=== PATIENT | male | born 1990 | race Caucasian/White ===

== ENCOUNTER 2017-05-17 09:34 | Inpatient (IN) | payer OTHER ==
[~2017-05-17] VITALS: Ht 180.3 cm; Wt 59.0 kg
[2017-05-17] MEDS ORDERED: NICOTINE POLACRILEX 4 MG GUM-PK OF TEN BC PRN (16:30)
[2017-05-17] MEDS ORDERED: LORAZEPAM 2 MG/1 ML VIAL IM PRN (16:30)
[2017-05-17] MEDS ORDERED: ONDANSETRON 4 MG/2 ML VIAL IM PRN (16:30)
[2017-05-17] MEDS ORDERED: DICYCLOMINE HCL 20 MG TABLET PO PRN (16:30)
[2017-05-17] MEDS ORDERED: ACETAMINOPHEN 325 MG TABLET PO PRN (16:30)
[2017-05-17] MEDS ORDERED: THIAMINE HCL 200 MG/2 ML VIAL IM ONE (16:30)
[2017-05-17] MEDS ORDERED: DIAZEPAM 5 MG TABLET PO PRN (16:30)
[2017-05-17] MEDS ORDERED: NICOTINE 14 MG/24HR PATCH TD PRN (16:30)
[2017-05-17] MEDS ORDERED: MAG HYDROX/AL HYDROX/SIMETH 30 ML LIQUID UDC PO PRN (16:30)
[2017-05-17] MEDS ORDERED: ONDANSETRON ODT 4 MG TAB.RAPDIS SL PRN (16:30)
[2017-05-17] MEDS ORDERED: DIAZEPAM 10 MG TABLET PO PRN ×2 (16:30)
[2017-05-17] MEDS ORDERED: MIRALAX 17 GM POWD.PACK PO PRN (16:30)
[2017-05-17] MEDS ORDERED: LOPERAMIDE HCL 2 MG CAPSULE PO PRN ×2 (16:30)
[2017-05-17] MEDS ORDERED: MAGNESIUM HYDROXIDE 30 ML LIQUID UDC PO PRN (16:30)
[2017-05-17] MEDS ORDERED: CLONIDINE HCL 0.1 MG TABLET PO PRN (16:30)
[2017-05-17] MEDS ORDERED: IBUPROFEN 600 MG TABLET PO PRN (16:30)
--- NOTE | 2017-05-17 16:30 | NUR ---
PRE-ASSESSMENT: Pre-Assessment done at intake office, client is A/O x4, he presents with flat affect, anxious mood, client appears undernourished. Client avoids eye contact, soft speech, he has difficulty staying still, he continuously talks with his hands, he slouches while sitting. T 98.4 , RR 18, BP 124/73 HR 74, spO2 @ 95% on RA, Pain on R knee /10. He is fully ambulatory. He denies any allergies; he reports hx withdrawal-induced seizure. PMH: Depression, anxiety, pancreatitis. Past surgical hx: Colonoscopy (Mar 2017) Client denies taking home medication. Substance history First time used at 15y/o, but started consuming more 7 years ago, Alcohol (beer) 6 cans (12oz) budweiser, last dose 3 Rum and Coke drinks before admission. Alprazolam 8-10mg PO daily for the past 11 months, last used 05/16/17 @ 1800, last dose 3mg. Hydrocodone 40-60mg PO three to four times a week. Last dose 20mg on 05/13/17. Cocaine 1gm snorted, for the past 11 months, last used 05/17/17, "a few lines" Marijuana "a few joints" smoked, last time used 05/13/17, a couple of puffs. Protocol regarding vitals Q4H, UDS, blood work, and controlled substances discuss with client, he verbalized understanding. PCP (adjunct art history instructor) Tricia Ramey
--- NOTE | 2017-05-17 16:35 | NUR ---
Admissions Note 27 year old male admitted to [facility] for withdrawal from multiple substances. Client is oriented to unit, educated about protocols and how to work TV and call light in his room. Weight: 144 pounds. Height: 5'11" CIWA: 4 Client appears anxious, clammy skin, superficial abrasion to R knee and lower back, d/t a fall 4 days ago while under the influence of alcohol. Bilateral lung clear on auscultation, abdomen soft, non-tender, no edema noted. Clients voice is soft, he avoids eye contact. Client has NKA. Regular diet ordered. Full code status ordered. Client reports history of withdrawal-induced seizure and delirium. LBM was 05/15/07, medium/with dark blood/soft x 1. He gives verbal consent for FLU/ PNA vaccine. He gives verbal consent for HIV. Client states that he lives with his girlfriend. He reports 3 prior treatments, last been in an outpatient treatment on Apr 2016 at [facility]. His longest period of sobriety is for the last eight months and ended on May 2016. Dr. Crawley assessed client. Urine collected. All safety measures instituted. Univeral precaution. Call light within reach. Will continue to monitor.
[2017-05-17 16:45] LABS: BASOPHILS # (AUTO) 0.1 K/uL (0.0-8.0); BASOPHILS % (AUTO) 0.9 % (0.0-2.0); EOSINOPHILS # (AUTO) 0.2 K/uL (0.0-0.7); HEMATOCRIT 43.7 % (36.7-47.1); HEMOGLOBIN 14.9 g/dL (12.5-16.3); LYMPHOCYTES # (AUTO) 1.6 K/uL (20.0-40.0); LYMPHOCYTES % (AUTO) 24.9 % (20.5-51.5); MEAN CORPUSCULAR HEMOGLOBIN 29.5 uug (23.8-33.4); MEAN CORPUSCULAR HGB CONC 34 g/dL (32.5-36.3); MEAN CORPUSCULAR VOLUME 86.4 fL (73.0-96.2); MONOCYTES # (AUTO) 0.5 K/uL (2.0-10.0); MONOCYTES % (AUTO) 7.5 % (0.0-11.0); NEUTROPHILS # (AUTO) 4.1 K/uL (1.8-8.9); NEUTROPHILS % (AUTO) 63.7 % (38.5-71.5); PLATELET COUNT (AUTO) 329 K/uL (152-348); RED BLOOD CELL COUNT(AUTO) 5.06 MIL/uL (4.06-5.63); WHITE BLOOD COUNT (AUTO) 6.5 K/uL (3.6-10.2)
[2017-05-17 16:56] LABS: BILIRUBIN,TOTAL 0.6 mg/dL (0.2-1.0); CREATININE 1.2 mg/dL (0.6-1.3); POTASSIUM 3.3 mmol/L (3.5-5.1); TOTAL PROTEIN, SERUM 7.2 g/dL (6.4-8.2)
[2017-05-17 17:11] LABS: *AMPHETAMINE, URINE NEGATIVE (NEGATIVE); *BARBITURATE, URINE NEGATIVE (NEGATIVE); *CANNABINOID, URINE POSITIVE (NEGATIVE); *COCCAINE, URINE POSITIVE (NEGATIVE); *OPIATE, URINE NEGATIVE (NEGATIVE); *PHENCYCLIDINE SCREEN,URINE NEGATIVE (NEGATIVE)
[2017-05-17] MEDS ORDERED: POTASSIUM CHLORIDE 10 MEQ TAB.PRT.SR PO ONE (17:15)
--- NOTE | 2017-05-17 19:36 | NUR ---
START OF SHIFT NOTE: Patient is a 27 year old male admitted for ETOH/Beer withdrawal. Patient reports NKA, is on Full code, is on Fall and Seizures Precautions. Patient reports Hx of withdrawal-induced seizures. Patient is alert and oriented x4, resting on the bed. Patient is unshaven, irritable, with avoidant eye contact. Last CIWA =4 @1600 per outgoing day shift nurse report: Patient presented anxious, agitated, with tremors, restlessness, nervousness, sweats, c/o abdominal pain, nasal congestion, and fatigue. No PRN Medications given throughout the day per day shift nurse report. Patient encouraged to express his feelings. Encouraged to fluids intake as tolerated. All needs met. Safety measures in place: Call light within reach, bed is locked and in lowest position, padded bed rails up bilaterally. Patient endorsed by outgoing day shift nurse. Report received. Will continue to monitor closely.
--- NOTE | 2017-05-17 19:36 | NUR ---
END OF SHIFT Endorsed client to incoming nurse, client is a/o x 4, he remains in his room, prefers dim light, he presents with anxious mood, flat affect. Adequate PO fluid intake 100mL, void x 1. Last CIWA 4 @ 1600. Call light within reach.
[2017-05-17 20:00] VITALS: BP 107/74
[2017-05-17] MEDS ORDERED: PHENOBARBITAL 60 MG TABLET PO SCH (21:00)
[2017-05-18] VITALS: BP 96/60
[2017-05-18 04:00] VITALS: BP 95/57
--- NOTE | 2017-05-18 06:52 | NUR ---
END OF SHIFT NOTE: Patient is a 27 year old male admitted for ETOH/Beer withdrawal, continues Phenobarbital Taper, which tolerated well, and remains compliant with treatment, medications, and diet regime Patient reports Hx of withdrawal-induced seizures and History of Falls "when was drank". Fall and Seizures Precautions. Patient is alert and oriented x4, is unshaven, irritable, with avoidant eye contact. CIWA =10 @2000, CIWA=9 @0000. Last CIWA=9 @0400. Patient presented with anxiety, agitation, nervousness, tremors, restlessness, sweating, abdominal pain, body aches, nasal congestion, and fatigue. No PRN Medications given throughout the night. Patient encouraged to express his feelings. Encouraged to fluids intake as tolerated. All needs met. Safety measures in place: Call light within reach, bed is locked and in lowest position, padded bed rails up bilaterally. Patient endorsed to day shift nurse.
--- NOTE | 2017-05-18 07:45 | NUR ---
START OF SHIFT Endorse rcvd from ongoing nurse, client is lying in bed, he is a/o X 3, client presents with irritable mood, flat affect, skin moist, fine tremors, moist skin, restless legs, moist skin, difficulty concentrating, jumpy and answers with loud voice . Client request to dim the light in room since it bothers him, he reports difficulty sleeping, pins and needle sensation on legs, fatigue, nausea, generalized body aches, and sweats. Encourage client to increase PO fluid to facilitate detox. Encourage client to participate in ADL and to attend group therapy for skills to maintain sober. Client is on second of 5 day Phenobarbital taper, tolerating well. Last CIWA 9 @ 0400. Client slept 8 hrs. Seizure precautions rendered. Call light within reach.
[2017-05-18] MEDS: THIAMINE HCL 100 MG TABLET PO SCH (08:18)
[2017-05-18] MEDS: PHENOBARBITAL 60 MG TABLET PO SCH ×4 (08:18→20:58)
[2017-05-18] MEDS: MULTIVITAMINS,THERAPEUTIC TABLET PO SCH (08:19)
[2017-05-18] MEDS: FOLIC ACID 1 MG TABLET PO SCH (08:19)
[2017-05-18 08:25] VITALS: BP 111/70
--- NOTE | 2017-05-18 08:38 | NUR ---
PRN Tylenol 650mg PO for L side of neck 09/02. Call light within reach.
--- NOTE | 2017-05-18 08:39 | NUR ---
PPD Test administered to L forearm, client tolerated well.
[2017-05-18] MEDS ORDERED: TUBERCULIN,PURIF.PROT.DERIV. 5 TU/0.1 ML TEST ID ONE (09:00)
[2017-05-18] MEDS ORDERED: GABAPENTIN 300 MG CAPSULE PO SCH (09:00)
--- NOTE | 2017-05-18 09:38 | NUR ---
Reassess PRN Tylenol 650mg, client reporst relief from L side of neck 2/10, but tolerable. Will continue to monitor.
--- NOTE | 2017-05-18 10:52 | NUR ---
Client refused PNA/FLU vaccine, stating, "I change my mind, I' don't want to get the vaccines. Risk and benefits of vaccines discuss with client, but he still refused.
[2017-05-18] MEDS ORDERED: METHOCARBAMOL 750 MG TABLET PO PRN (11:00)
[2017-05-18] MEDS: LIDOCAINE 5% PATCH TD SCH ×2 (12:04→22:56)
--- NOTE | 2017-05-18 12:04 | NUR ---
PRN Robaxin 750mg PO for muscle spasms on L side of neck. Call light within reach.
[2017-05-18 12:21] VITALS: BP 136/78
--- NOTE | 2017-05-18 13:02 | NUR ---
Reassess PRN Robaxin 750mg, client reports relief from muscle spasms on L side of neck.
[2017-05-18] MEDS: GABAPENTIN 300 MG CAPSULE PO SCH ×2 (14:15→20:57)
[2017-05-18 16:54] VITALS: BP 120/74
--- NOTE | 2017-05-18 17:09 | NUR ---
Therapist prompted client to attend daily group session. Client responded by stating that he would attend if she was feeling well enough to go.
--- NOTE | 2017-05-18 19:04 | NUR ---
START OF SHIFT NOTE: Patient is a 27 year old male admitted for ETOH/Beer withdrawal, continues Phenobarbital taper, which tolerated well. Patient is alert and oriented x4, noted anxious, agitated, irritable, sad, with avoidant eye contact. Last CIWA =14 @1633 per day shift nurse report. Patient presented anxious, agitated, nervousness,with tremors, restlessness, sweats, body aches, myalgia, stomach pain, nasal congestion, and fatigue. PRN Tylenol 650 mg PO administrated for left side neck pain @0838, PRN Robaxin 750 mg 1 tablet PO given for myalgia @1204 were effective, per day shift nurse report. Patient encouraged to express his feelings. Encouraged to fluids intake as tolerated. Encouraged to attend group activities. All needs met. Safety measures in place: Call light within reach, bed is locked and in lowest position, padded bed rails up bilaterally. Patient endorsed by outgoing day shift nurse. Report received. Will continue to monitor closely.
--- NOTE | 2017-05-18 19:04 | NUR ---
END OF SHIFT Endorsed client to incoming nurse, client is a/o x 4, she needs encouragement to attend group therapy, client remains isolated in his room due to withdrawal symptoms, he continues to present with anxious mood, flat affect, restless legs, fine tremors, and nausea. He consumed ~ 50% of meals. PRN Tylenol 650mg PO for L side of neck 09/02, Robaxin 750mg for muscle spasms on L side of neck, noted effective. Adequate PO fluid intake 3058mL, void x 2. Last CIWA 14 @ 1600. Call light within reach.
[2017-05-18 20:00] VITALS: BP 110/72
[2017-05-18] MEDS: diphenhydrAMINE 50 MG CAPSULE PO PRN (22:56)
--- NOTE | 2017-05-18 22:56 | NUR ---
LIDODERM 5% PATCH (LIDOCAINE 5% PATCH) 1 PATCH FOR LEFT SHOULDER AND BENADRYL 50 MG 1 CAP FOR INSOMNIA ADMINISTRATION PATIENT C/O LOST OF APPLIED LIDODERM 5% PATCH IMMEDIATELY AFTER DAY SHIFT NURSE APPLIED TO HIM FOR HIS SEVERE LEFT SHOULDER PAIN "8/10" AND C/O INSOMNIA . LIDODERM 5% PATCH (LIDOCAINE 5% PATCH) 1 PATCH FOR LEFT SHOULDER APPLIED, AND BENADRYL 50 MG 1 CAP FOR INSOMNIA ADMINISTRATED TO PATIENT ORDERED. PATIENT TOLERATED WELL. ALL NEEDS MET. SAFETY MEASURES ON PLACE. CALL LIGHT WITHIN REACH, BED IN LOWEST POSITION, AND LOCKED, PADDED RAILS UP BILATERALLY. WILL CONTINUE TO MONITOR CLOSELY.
--- NOTE | 2017-05-18 23:56 | NUR ---
RE-ASSESSMENT PATIENT IS SLEEPING. RESPIRATIONS ARE EVEN AND UNLABORED. RR:16. PRN BENADRYL 50 MG 1 CAPSULE PO ADMINISTRATED @2114 FOR INSOMNIA WAS EFFECTIVE. ALL NEEDS MET. SAFETY MEASURES ON PLACE: CALL LIGHT WITHIN REACH, BED IS LOCKED IN THE LOWEST POSITION, BED RAILS UP X2. WILL CONTINUE TO MONITOR CLOSELY.
[2017-05-19] VITALS: BP 104/66
[2017-05-19 04:30] VITALS: BP 97/65
--- NOTE | 2017-05-19 06:58 | NUR ---
END OF SHIFT NOTE: A 27 year old male presented for Alcohol/Beer withdrawal, tolerated well with Phenobarbital Taper, and remains compliant with treatment, medications, and diet regime. Withdrawal symptoms closely monitored. Patient is alert and oriented x4. Patient noted unshaven, with uncombed hair, worry, sad, and with poor eye contact. Educated in safety and hygiene care. Encouraged to independently perform hygiene care. Encouraged verbalization of feelings, fears, and anxiety. CIWA =12 @2000, CIWA=9 @0000. Last CIWA=7 @0400: Patient presented with anxiety, agitation, irritability, fatigue, nervousness, body aches, stomach cramps, tremors, sweating, and restlessness. PRN Benadryl 50 mg 1 capsule administrated for insomnia @2256 was effective. Patient slept 6 hours, intake 1,000 ml, voided x3. Safe and calm environment with minimized noises was provided. Encouraged to fluids intake as tolerated. Encouraged to attend groups activities. All needs met. Safety measures in the place by hospital policy: Call light within reach, bed in the lowest position locked, padded rails up x2. Patient endorsed to day shift nurse.
--- NOTE | 2017-05-19 07:30 | NUR ---
START OF SHIFT Pt 27 y/o male admitted for withdrawal from multiple substances. Pt received in room on bed with eyes closed resting, but easily arousable to name. Perrla. Pt alert and oriented to name, place, and time. Respirations even and unlabored. Bilateral hand tremors noted. Observed clothes scattered throughout the room. Pt appears disheveled and unkempt. Encouraged pt to put clothes away and to maintain hygiene. It was reported that pt slept for 6 hours last night. Last reported ciwa=7 @ 2100. Pt is on a 5 day phenobarbital taper and is on day 3. Bed on lowest position with side rails x2 up for safety. Call light within reach.
[2017-05-19 08:00] VITALS: BP 96/62
[2017-05-19] MEDS: PHENOBARBITAL 60 MG TABLET PO SCH ×3 (08:32→20:19)
[2017-05-19] MEDS: MULTIVITAMINS,THERAPEUTIC TABLET PO SCH (08:33)
[2017-05-19] MEDS: FOLIC ACID 1 MG TABLET PO SCH (08:33)
[2017-05-19] MEDS: GABAPENTIN 300 MG CAPSULE PO SCH ×2 (08:33→14:09)
[2017-05-19] MEDS: THIAMINE HCL 100 MG TABLET PO SCH (08:33)
[2017-05-19 11:07] LABS: HEPATITIS B SURFACE AG Negative (Negative)
[2017-05-19] MEDS ORDERED: CLONIDINE HCL 0.1 MG TABLET PO ONE (12:00)
[2017-05-19] MEDS ORDERED: DIAZEPAM 10 MG TABLET PO PRN ×2 (12:00)
[2017-05-19] MEDS ORDERED: KETOROLAC TROMETHAMINE 30 MG INJ IM PRN (12:00)
[2017-05-19] MEDS ORDERED: DIAZEPAM 10 MG TABLET PO SCH (12:00)
[2017-05-19] MEDS ORDERED: DIAZEPAM 5 MG TABLET PO PRN (12:00)
[2017-05-19 12:13] VITALS: BP 114/78
--- NOTE | 2017-05-19 12:23 | NUR ---
ONE TIME Pt with ciwa=10. Pt anxious, pacing room with tremors noted. Valium 10 mg po one time per MD order given and tolerated well.
--- NOTE | 2017-05-19 13:33 | NUR ---
BELTRAN LAMB Pt observed walking around the unit in the hallways. ciwa=3.
[2017-05-19 16:00] VITALS: BP 112/80
--- NOTE | 2017-05-19 16:30 | NUR ---
TRACEY DEFERRED Pt in room on bed with eyes closed resting, but easily arousable to name. TRACEY deferred.
--- NOTE | 2017-05-19 18:47 | NUR ---
END OF SHIFT Pt 27 y/o male admitted for withdrawal from multiple substances. Pt alert and oriented to name, place, and time. Perrla. Skin warm and moist to touch. Respirations even and unlabored. Bilateral hand tremors noted. Pt with periods of anxiety this morning. Clothes scattered throughout the room. Pt appears disheveled. Encouraged pt to maintain hygiene. Pt isolative to room mostly throughout the day. Pt did attend group activity today. Pt was seen by MD today. Pt medication compliant and tolerated well. No ASE noted. Pt is on a 5 day phenobarbital taper and is on day 3. CIWAS= 7 @0800, 10@1200, and deferred@1600. Pt with periods of anxiety this afternoon. Bed on lowest position with side rails x2 up for safety. Call light within reach.
[2017-05-19 20:00] VITALS: BP 110/70
--- NOTE | 2017-05-19 20:00 | NUR ---
START OF SHIFT NOTE RECEIVED REPORT FROM DAY SHIFT NURSE. PATIENT IS A 27 YEAR OLD MALE ADMITTED FOR ETOH/BENZO /OPIATE WITHDRAWAL. PATIENT ON 3RD DAY OF HIS 6 DAY MODIFIED PHENOBARBITAL TAPER, TOLERATED WELL AND NO ADVERSE REACTION. PATIENT WAS GIVE PRN VALIUM . LAST CIWA 10. RECEIVED PATIENT IN THE ROOM, DISHEVELED, FLAT AFFECT, ANXIOUS AND RESTLESS. SAFETY MEASURES IN PLACE. CALL LIGHT IN REACH. WILL CONTINUE TO MONITOR.
[2017-05-19] MEDS: BACLOFEN 10 MG TABLET PO SCH (20:19)
[2017-05-19] MEDS: CLONIDINE HCL 0.1 MG TABLET PO SCH (20:20)
[2017-05-19] MEDS ORDERED: GABAPENTIN 300 MG CAPSULE PO SCH (21:00)
[2017-05-19] MEDS: diphenhydrAMINE 50 MG CAPSULE PO PRN (22:28)
--- NOTE | 2017-05-19 22:28 | NUR ---
PRN BENADRYL ADMINISTRATION PATIENT REQUESTS FOR SLEEP AID. WILL MONITOR FOR EFFECTIVENESS
--- NOTE | 2017-05-19 23:28 | NUR ---
PRN BENADRYL RE-ASSESSMENT PATIENT IN BED WITH EYES CLOSED. RESPIRATION EVEN AND UNLABORED. SAFETY MEASURES IN PLACE. CALL LIGHT IN REACH. WILL CONTINUE TO MONITOR.
--- NOTE | 2017-05-20 | NUR ---
CIWA DEFERRED PATIENT SLEEPING. VS REFUSED. RESPIRATION EVEN AND UNLABORED. SAFETY MEASURES IN PLACE. CALL LIGHT IN REACH. WILL CONTINUE TO MONITOR.
--- NOTE | 2017-05-20 04:00 | NUR ---
CIWA DEFERRED PATIENT SLEEPING. VS REFUSED. RESPIRATION EVEN AND UNLABORED. SAFETY MEASURES IN PLACE. CALL LIGHT IN REACH. WILL CONTINUE TO MONITOR.
--- NOTE | 2017-05-20 07:06 | NUR ---
END OF SHIFT NOTE PATIENT SLEPT 6 HOURS. FLUID INTAKE 796 ML. VOIDED X 2. NO BM . MONITORED THROUGHOUT SHIFT. MEDICATION GIVEN ORDERED, TOLERATED WELL AND NO ADVERSE REACTION. PATIENT COMPLIANT WITH MEDICATION AND TREATMENT PLAN. PATIENT WAS GIVEN PRN BENADRYL FOR SLEEP. SAFETY MEASURES IN PLACE. CALL LIGHT IN REACH. WILL CONTINUE TO MONITOR. LAST CIWA 7.
--- NOTE | 2017-05-20 07:45 | NUR ---
START OF SHIFT Endorse rcvd from ongoing nurse, client's room feels stuffy, clothes thrown on floor. Client is in bed in a position, a/o x 4, he presents anxious mood, flat affect, red, teary eyes, tremors felt not observed, clammy skin, he has difficulty concentrating. Client reports in a loud, shaky voice; abdominal cramps, feeling of panic, restless legs, L neck pain 7/10, nausea, decreased appetite and fatigue. Encourage client to increase PO fluid to facilitate detox. Encourage client to participate in ADL and to attend group therapy for skills to maintain sober. Client is on fourth of modified 6 day Phenobarbital taper, tolerating well. Last CIWA 7 @ 1999. PRN Benadryl 50mg for inability to sleep, client slept 6 hrs. Seizure precautions rendered. Call light within reach.
[2017-05-20 08:20] VITALS: BP 128/79
[2017-05-20] MEDS: BACLOFEN 10 MG TABLET PO SCH ×2 (08:27→20:38)
[2017-05-20] MEDS: FOLIC ACID 1 MG TABLET PO SCH (08:27)
[2017-05-20] MEDS: LIDOCAINE 5% PATCH TD SCH (08:27)
[2017-05-20] MEDS: THIAMINE HCL 100 MG TABLET PO SCH (08:27)
[2017-05-20] MEDS: CLONIDINE HCL 0.1 MG TABLET PO SCH ×2 (08:27→20:38)
[2017-05-20] MEDS: PHENOBARBITAL 60 MG TABLET PO SCH ×2 (08:27→12:55)
[2017-05-20] MEDS: MULTIVITAMINS,THERAPEUTIC TABLET PO SCH (08:27)
[2017-05-20] MEDS: GABAPENTIN 300 MG CAPSULE PO SCH ×3 (08:27→20:38)
--- NOTE | 2017-05-20 08:39 | NUR ---
Zero induration noted at L forearm with PPD Test
[2017-05-20 12:25] VITALS: BP 94/57
[2017-05-20 16:55] VITALS: BP 119/66
[2017-05-20] MEDS ORDERED: PHENOBARBITAL 60 MG TABLET PO SCH ×2 (17:00→21:00)
--- NOTE | 2017-05-20 19:30 | NUR ---
START OF SHIFT Pt is 27 y/o male admitted for withdrawals from multiple substances;he is a/o x 4, has been compliant with medications and treatment plan ;pt received in the hallway,somewhat anxious on approach,wanting to go to smoke.Last CIWA was 14 AT 1600.PO fluids encouraged.Emotional support and positive coping/relaxation skills implemented.Will continue to monitor for safety and medicate per orders.
--- NOTE | 2017-05-20 19:35 | NUR ---
END OF SHIFT Endorsed client to incoming nurse, client is a/o x 4, he is compliant with group therapy, he continues to present with anxious mood, flat affect, restless legs, fine tremors, and nausea. He consumed ~ 50% of meals. Adequate PO fluid intake 1552mL, void x 3, stool x 1. Last CIWA 14 @ 1600. Call light within reach.
[2017-05-20 20:00] VITALS: BP 118/61
--- NOTE | 2017-05-21 | NUR ---
V/S REFUSED / CIWA DEFERRED. PATIENT IS SLEEPING COMFORTABLY IN BED. V/S REFUSED. RESPIRATION EVEN AND NONLABORED. ALL SAFETY MEASURES IN PLACE. CALL LIGHT WITHIN REACH. WILL CONTINUE TO MONITOR.
[2017-05-21] MEDS: diphenhydrAMINE 50 MG CAPSULE PO PRN ×2 (03:28→23:57)
--- NOTE | 2017-05-21 06:47 | NUR ---
END OF SHIFT Pt is 27 y/o male admitted for withdrawals from multiple substances;he is a/o x 4, has been compliant with medications and treatment plan ;Last CIWA was 5 AT 2000; midnight and 0400 CIWA deferred d/t pt being asleep.PO fluids encouraged.Pt slept 8 hrs;fluid intake was 1151 mls,voided x 1,B/M x 1.All safety measures in place,call light within reach.Will continue to monitor for safety.
--- NOTE | 2017-05-21 07:30 | NUR ---
Start of shift note; Received report from night nurse. Patient is a 27 year old male admitted on 05/17/17 for Benzodiazepine/ ETOH/ withdrawals. Patient appears anxious, avoidant to eye contact, complaining of stomach cramps, muscle aches, restlessness, agitation. Patient was placed on a modified 6 day Phenobarbital taper. Educated patient regarding the importance of treatment plan and medication regime. Encouraged patient to participate in group therapies and activities. All safety measures secured. Will continue to monitor patient.
[2017-05-21 08:00] VITALS: BP 98/62
[2017-05-21] MEDS: CLONIDINE HCL 0.1 MG TABLET PO SCH ×2 (08:53→20:59)
[2017-05-21] MEDS: LIDOCAINE 5% PATCH TD SCH (08:54)
[2017-05-21] MEDS: FOLIC ACID 1 MG TABLET PO SCH (08:55)
[2017-05-21] MEDS: BACLOFEN 10 MG TABLET PO SCH ×2 (08:55→20:59)
[2017-05-21] MEDS: THIAMINE HCL 100 MG TABLET PO SCH (08:55)
[2017-05-21] MEDS: PHENOBARBITAL 60 MG TABLET PO SCH ×3 (08:55→21:00)
[2017-05-21] MEDS: MULTIVITAMINS,THERAPEUTIC TABLET PO SCH (08:55)
[2017-05-21] MEDS: GABAPENTIN 300 MG CAPSULE PO SCH ×3 (08:55→20:59)
[2017-05-21] MEDS ORDERED: HYDROXYZINE PAMOATE 25 MG CAPSULE PO PRN (11:15)
[2017-05-21 12:00] VITALS: BP 119/73
[2017-05-21 16:00] VITALS: BP 133/86
--- NOTE | 2017-05-21 17:13 | NUR ---
Therapist encouraged client to come to groups today.
--- NOTE | 2017-05-21 17:57 | NUR ---
End of shift note; Patient is AOX4. Patient remained compliant with treatment care and medication regime. Patient participated in group therapies and activities. Patient's last CIWA score is 6. Patient was complaining of muscle aches and anxiety. All safety measures secured. Met all needs.
--- NOTE | 2017-05-21 19:30 | NUR ---
START OF SHIFT Pt is 27 y/o male admitted for withdrawals from multiple substances; Pt received in room ,c/o anxiety and myalgia but does not want to take any medications at this time. He is a/o x 4, has been compliant with medications and treatment plan ;Last CIWA was 6 AT 1600.PO fluids encouraged.All safety measures in place,call light is within reach.Will continue to monitor for safety.
[2017-05-21 20:00] VITALS: BP 117/72
--- NOTE | 2017-05-21 23:58 | NUR ---
PRN BENADRYL GIVEN FOR C/O INSOMNIA.WILL MONITOR FOR EFFECTIVENESS.
[2017-05-22] VITALS: BP 110/78
--- NOTE | 2017-05-22 02:00 | NUR ---
PRN F/U PRN BENADRYL IS EFFECTIVE,PT IS RESTING IN BED WITH EYES CLOSED,APPEARS TO BE SLEEPING.
--- NOTE | 2017-05-22 06:40 | NUR ---
END OF SHIFT Pt is 27 y/o male admitted for withdrawals from multiple substances;He is a/o x 4, has been compliant with medications and treatment plan;Pt continues on Phenobarbital taper as ordered.Last CIWA was 5 at midnight.0400 CIWA deferred due to sleep.PRN Benadryl was given and was effective.Pt slept 6 hrs,fluid intake was 750 mls,voided x 3.PO fluids encouraged as tolerated.All safety measures in place,call light is within reach.Will continue to monitor for safety.
--- NOTE | 2017-05-22 07:00 | NUR ---
Start of Shift Acute Care Registered Nurse received report on 27 year old male admitted to [facility] on 05/17/17 for Benzodiazepine, ETOH, Opiate and Cocaine detoxification. Pt endorses NKA, full code and regular diet. PMH of Pancreatitis, depression, anxiety and ADHD. Pt has a history of withdrawal induced seizures. Pt currently on a Phenobarbital taper, tolerating well with CIWA 5 recorded by NOC, per report. Pt administered Benadryl PRN. Acute Care Registered Nurse encounters pt in bed resting with eyes closed. Rise and fall of chest noted with even rise and fall of chest noted. Bed in low position with wheels locked and side rails up x2. Will continue to monitor, support and encourage according to plan of care.
[2017-05-22 08:50] VITALS: BP 105/62
[2017-05-22] MEDS: FOLIC ACID 1 MG TABLET PO SCH (09:15)
[2017-05-22] MEDS: BACLOFEN 10 MG TABLET PO SCH ×2 (09:15→21:01)
[2017-05-22] MEDS: GABAPENTIN 300 MG CAPSULE PO SCH ×3 (09:15→21:01)
[2017-05-22] MEDS: CLONIDINE HCL 0.1 MG TABLET PO SCH ×2 (09:15→21:03)
[2017-05-22] MEDS: PHENOBARBITAL 60 MG TABLET PO SCH ×2 (09:16→21:03)
[2017-05-22] MEDS: MULTIVITAMINS,THERAPEUTIC TABLET PO SCH (09:17)
[2017-05-22] MEDS: THIAMINE HCL 100 MG TABLET PO SCH (09:17)
[2017-05-22] MEDS: LIDOCAINE 5% PATCH TD SCH (09:17)
--- NOTE | 2017-05-22 09:17 | NUR ---
PRN Vistaril Pt complains of anxiety, visibly anxious. Pt requests PRN Vistaril with his morning medication. Logging Contractor administered medication per MD order. Pt tolerated well. Will continue to monitor, support and encourage according to plan of care.
--- NOTE | 2017-05-22 09:17 | NUR ---
Medication Administration Comment Behavioral Science Chair administered PRN Vistaril without scanning medication
--- NOTE | 2017-05-22 10:17 | NUR ---
BELTRAN Monge Pt endorses some relief, stating, " I am feeling better." Will continue to monitor, support and encourage according to plan of care.
[2017-05-22 12:28] VITALS: BP 116/64
--- NOTE | 2017-05-22 12:40 | NUR ---
Endorsement Hvac Estimator endorses 27 year old male admitted to [facility] on 05/17/17 for Benzodiazepine, ETOH, Opiate and Cocaine detoxification. Pt endorses NKA, full code and regular diet. PMH of Pancreatitis, depression, anxiety and ADHD. Pt has a history of withdrawal induced seizures. Pt currently on a Phenobarbital taper, tolerating well with CIWA 3 recorded at 1200. Pt administered Vistaril PRN. Pt A/O x4 and makes his needs known. Clear of thought and speech. Normal affect with full range of emotions. Bed in low position with wheels locked and side rails up x2. Will continue to monitor, support and encourage according to plan of care.
--- NOTE | 2017-05-22 12:45 | NUR ---
TRANSFER OF CARE RECEIVED ENDORSEMENT AND ALL PERTINENT INFO BY NURSE. WILL CONTINUE TO MONITOR, PROVIDE CARE AND SUPPORT.
[2017-05-22] MEDS: HYDROXYZINE PAMOATE 25 MG CAPSULE PO SCH ×3 (14:26→21:01)
[2017-05-22 16:00] VITALS: BP 114/62
--- NOTE | 2017-05-22 19:12 | NUR ---
END OF SHIFT LAST CIWA 8 @1600. LAST CIWA 12. PT C/O ANXIETY AND REPORTED VISTARIL IS EFFECTIVE. SIDE RAILS UPX2, BED IS IN LOWEST POSTION. ALL SAFETY MESURES IN PLACE. CALL LIGHT WITHIN REACH. WILL GIVE PERTINENT INFO AND ENDORSEMENT TO ALLIGATOR TRAPPER NURSE.
[2017-05-22 20:00] VITALS: BP 102/73
--- NOTE | 2017-05-22 20:00 | NUR ---
START OF SHIFT NOTE RECEIVED REPORT FROM DAY SHIFT NURSE. PATIENT IS A 27 YEAR OLD MALE ADMITTED FOR MULTIPLE SUBSTANCES. CONTINUE PATIENT ON PHENOBARBITAL TAPER, TOLERATED WELL AND NO ADVERSE REACTION. PATIENT DID NOT REQUIRE PRN MEDICATION. LAST CIWA 8. RECEIVED PATIENT IN THE ROOM, RESTING. PATIENT SAD, FATIGUE, AVOIDANT EYE CONTACT, GARBAGE AROUND ROOM AND CLOTHES AROUND ROOM . SAFETY MEASURES IN PLACE. CALL LIGHT IN REACH. WILL CONTINUE TO MONITOR
[2017-05-23] VITALS: BP 112/72
[2017-05-23] MEDS: diphenhydrAMINE 50 MG CAPSULE PO PRN ×2 (00:12→23:38)
--- NOTE | 2017-05-23 00:12 | NUR ---
PRN BENADRYL ADMINISTRATION PATIENT REQUESTS FOR SLEEP AID. WILL MONITOR FOR EFFECTIVENESS
--- NOTE | 2017-05-23 01:12 | NUR ---
PRN BENADRYL RE-ASSESSMENT PATIENT IN BED WITH EYES CLOSED. RESPIRATION EVEN AND UNLABORED. WILL CONTINUE TO MONITOR
[2017-05-23] MEDS: HYDROXYZINE PAMOATE 25 MG CAPSULE PO SCH ×6 (02:00→22:50)
--- NOTE | 2017-05-23 04:00 | NUR ---
CIWA DEFERRED PATIENT IN BED WITH EYES CLOSED. RESPIRATION EVEN AND UNLABORED. WILL CONTINUE TO MONITOR
--- NOTE | 2017-05-23 07:07 | NUR ---
END OF SHIFT NOTE PATIENT SLEPT 10 HOURS. FLUID INTAKE 240 ML. VOIDED X 0. NO BM. MONITORED PATIENT THROUGHOUT SHIFT. MEDICATION GIVEN ORDERED, TOLERATED WELL AND NO ADVERSE REACTION. PATIENT IN THE ROOM MOST OF THE SHIFT. AT 0012, PATIENT REQUESTED FOR SLEEP AID, PRN BENADRYL GIVEN AND EFFECTIVE. VISTARIL HELD AT 0200 DUE TO PATIENT SLEEPING.SAFETY MEASURES IN PLACE. CALL LIGHT IN REACH. WILL CONTINUE TO MONITOR. LAST CIWA 1 AT 12 AM.
--- NOTE | 2017-05-23 07:10 | NUR ---
Start of Shift Maintenance Person received report on 27 year old male admitted to [facility] on 05/17/17 for Benzodiazepine, ETOH, Opiate and Cocaine detoxification. Pt endorses NKA, full code and regular diet. PMH of Pancreatitis, depression, anxiety and ADHD. Pt has a history of withdrawal induced seizures. Pt currently on a Phenobarbital taper, tolerating well with CIWA 1 recorded by NOC, per report. Pt administered Benadryl PRN. Maintenance Person encounters pt in bed resting with eyes closed. Rise and fall of chest noted with even rise and fall of chest noted. Bed in low position with wheels locked and side rails up x2. Will continue to monitor, support and encourage according to plan of care.
[2017-05-23 08:06] VITALS: BP 91/49
[2017-05-23] MEDS: CLONIDINE HCL 0.1 MG TABLET PO SCH (09:00)
[2017-05-23] MEDS ORDERED: PHENOBARBITAL 60 MG TABLET PO SCH (09:00)
[2017-05-23] MEDS: BACLOFEN 10 MG TABLET PO SCH ×2 (09:12→20:24)
[2017-05-23] MEDS: FOLIC ACID 1 MG TABLET PO SCH (09:12)
[2017-05-23] MEDS: LIDOCAINE 5% PATCH TD SCH (09:13)
[2017-05-23] MEDS: MULTIVITAMINS,THERAPEUTIC TABLET PO SCH (09:13)
[2017-05-23] MEDS: THIAMINE HCL 100 MG TABLET PO SCH (09:13)
[2017-05-23] MEDS: GABAPENTIN 300 MG CAPSULE PO SCH ×3 (09:13→20:23)
[2017-05-23 12:31] VITALS: BP 117/71
[2017-05-23] MEDS ORDERED: CLONIDINE HCL 0.1 MG TABLET PO PRN (14:00)
[2017-05-23] MEDS ORDERED: CLONIDINE HCL 0.2 MG TABLET PO PRN (14:15)
[2017-05-23] MEDS ORDERED: HYDR-3895 PO (14:57)
[2017-05-23] MEDS ORDERED: BACL10TA PO (14:57)
[2017-05-23] MEDS ORDERED: LIDO30AD10 TD (14:57)
[2017-05-23] MEDS ORDERED: GABA-534 PO (14:57)
[2017-05-23 16:56] VITALS: BP 121/79
--- NOTE | 2017-05-23 19:02 | NUR ---
End of Shift Outpatient Case Manager provided report on 27 year old male admitted to [facility] on 05/17/17 for Benzodiazepine, ETOH, Opiate and Cocaine detoxification. Pt endorses NKA, full code and regular diet. PMH of Pancreatitis, depression, anxiety and ADHD. Pt has a history of withdrawal induced seizures. Pt completed his Phenobarbital taper, tolerated well with CIWA 1 recorded at 1600. Outpatient Case Manager did not administer any PRN on this shift. Pt is calm, cooperative and pleasant with telegraphic typewriter operator chief. A/O x4 and makes his needs known. Clear of thought and speech with a normal affect and full range of emotions. Pt has been social with peers and staff. Visible and participating in treatment. Bed in low position with wheels locked and side rails up x2. Will continue to monitor, support and encourage according to plan of care.
[2017-05-23 20:00] VITALS: BP 115/70
--- NOTE | 2017-05-23 20:00 | NUR ---
Start of Shift Note Received 27 y/o male px admitted on 05/17/2017 for medically supervised withdrawals from Benzos and opiate. Px finished 6 day modified Phenobarbital taper. Px tolerated very well. Px stated "I thought I will be in bad withdrawals but I didn't". Px is to be D/C tomorrow 05/24/2017. Px appears anxious and has avoidant eyes. Px stated "My anxiety is 7/10, can I have Clonidine and my Vistaril?" CIWA is 8. Bed on lowest position, side rails up 2x, and call light is within reach. We'll continue to monitor.
--- NOTE | 2017-05-23 21:23 | NUR ---
Reassessment of anxiety and BP Px stated that his anxiety improved from 10/02 to 5. BP= 101/60 and [place]=60 after an hour of administration of Clonidine 0.2 mg PO. We'll continue to monitor.
[2017-05-23] MEDS ORDERED: LIDOCAINE VISCUS 2% 15 ML UDC MM PRN (23:00)
--- NOTE | 2017-05-23 23:30 | NUR ---
PRN meds Px was given Clonidine 0.2 mg/tab, 1 tab PO as PRN for anxiety at 2022. BP= 115/70 and MD= 68. At 2327, Xylocaine viscus 5 ml was given to gargle for mouth/tongue sores. At 2337, px was given Benadryl 50 mg/cap, 1 cap PO as PRN for insomnia. We'll continue to monitor.
[2017-05-24] VITALS: BP 99/63
[2017-05-24] MEDS: HYDROXYZINE PAMOATE 25 MG CAPSULE PO SCH ×2 (02:03→06:18)
[2017-05-24 04:00] VITALS: BP 103/67
--- NOTE | 2017-05-24 04:00 | NUR ---
COWS and CIWA deferred COWS and CIWA deferred due to the px is asleep, to assess if the px is awake per doctors order. We'll continue to monitor.
--- NOTE | 2017-05-24 07:04 | NUR ---
End of Shift Note During the shift, at 2022, Clonidine 0.2 mg/tab, 1 tab given PO for anxiety, and it was effective. At 399, BP= 102/67. Benadryl 50 mg PO given for insomnia, it was effective. Px slept for 7 hours total. At 2327, px received Xylocaine Viscus 5 ml gargle for tongue sores. Px's oral intake is 900 ml, voided 2x, BM 1x. Last CIWA 6. At 0630, px is awake on bed in fowlers position. Bed on lowest position, side rails up 2x, and call is within reach. We'll continue to monitor.
--- NOTE | 2017-05-24 07:56 | NUR ---
START OF SHIFT Endorse rcvd from ongoing nurse, client is in room, he presents with anxious mood, flat affect, and flushed face. He stated, "I do not feel rested at all." Client is schedule for discharge this morning to [facility] to continue his treatment. Education provided regarding his discharge instructions, client verbalized understanding. Client was admitted to [facility] for medically supervised withdrawal from multiple substances. Client completed modified 7 day Phenobarbital taper. Last CIWA 6 @ 1999. Overnight client rcvd PRN Clonidine 0.1mg for anxiety, Benadryl for inability to sleep, client slept 7 hrs. LBM 05/23/17. Call light within reach. Safety precautions rendered.
[2017-05-24 08:07] VITALS: BP 118/64
[2017-05-24] MEDS: GABAPENTIN 300 MG CAPSULE PO SCH (08:33)
[2017-05-24] MEDS: MULTIVITAMINS,THERAPEUTIC TABLET PO SCH (08:33)
[2017-05-24] MEDS: FOLIC ACID 1 MG TABLET PO SCH (08:33)
[2017-05-24] MEDS: BACLOFEN 10 MG TABLET PO SCH (08:33)
[2017-05-24] MEDS: THIAMINE HCL 100 MG TABLET PO SCH (08:33)
[2017-05-24] MEDS: LIDOCAINE 5% PATCH TD SCH (08:34)
--- NOTE | 2017-05-24 10:10 | NUR ---
DISCHARGE NOTE Patient is AOX4. Patient is afebrile and in a stable condition. Patient completed treatment without any adverse reactions. All valuables, and belongings given to patient. Patient is medically cleared for discharge today per MD. Patient was escorted out of the facility on 05/24/17 at exactly 1010.
== END 2017-05-24 10:10 | disposition other institution (70) | DRG 895 ==
LOC: SRC 15:35
PROVIDERS: ADMIT Internal Medicine; ATTEND Internal Medicine
PROC: HZ2ZZZZ Detoxification Services for Substance Abuse Treatment (ICD-10-PCS; principal; 2017-05-17)
PROC: HZ41ZZZ Group Counseling for Substance Abuse Treatment, Behavioral (ICD-10-PCS; 2017-05-18)
PROC: HZ31ZZZ Individual Counseling for Substance Abuse Treatment, Behavioral (ICD-10-PCS; 2017-05-19)
DX: F10.232 Alcohol dependence with withdrawal with perceptual disturbance (principal); F14.20 Cocaine dependence, uncomplicated; F17.210 Nicotine dependence, cigarettes, uncomplicated; E87.6 Hypokalemia; F13.232 Sedative, hypnotic or anxiolytic dependence with withdrawal with perceptual disturbance; Y90.9 Presence of alcohol in blood, level not specified; Z81.1 Family history of alcohol abuse and dependence; Z91.89 Other specified personal risk factors, not elsewhere classified; F41.9 Anxiety disorder, unspecified; F90.9 Attention-deficit hyperactivity disorder, unspecified type; Z59.1 Inadequate housing; F32.9 Major depressive disorder, single episode, unspecified; F16.10 Hallucinogen abuse, uncomplicated; F12.10 Cannabis abuse, uncomplicated
CPT/HCPCS: 36415; 70030-TC; 80307; 80346; 80349; 80353; 83735; 85025; 86580; 86592; 86705; 86803; 87340; 87806; G0480; J3411; J8499; Q0163